=== PATIENT | male | born 2000 | race Caucasian/White ===

== ENCOUNTER 2019-10-23 15:26 | Emergency (ER) | payer OTHER ==
[2019-10-23 15:33] VITALS: BP 125/66; PULSE 93; TEMP 98.1; BMI 21.7
--- NOTE | 2019-10-23 15:34 | PDOC ---
Rapid Medical Evaluation Chief Complaint: Pain Time Seen by Provider: 10/23/19 15:30 Medical Evaluation: 10/23/19 15:32 CC: Left shoulder pain worse with movement x 2 weeks, also states had unprotected sex with a "stripper" wants std testing although asymptomatic Exam: FROM of left shoulder Plan: std testing. shoulder xray Discharge Disposition - Diagnosis Shoulder pain - Referrals - Patient Instructions - Post Discharge Activity
--- NOTE | 2019-10-23 16:25 | PDOC ---
History of Present Illness - General Chief Complaint: Pain Stated Complaint: PAIN Time Seen by Provider: 10/23/19 15:30 History Source: Patient Exam Limitations: No Limitations - History of Present Illness Initial Comments: 10/23/19 16:20 Patient is a 19-year-old male who presents to the ED with complaint of left shoulder pain that he gets intermittently and has had it for the last 1 week. He states the pain is primarily in the backside of his shoulder and radiates up his neck and sometimes down his back. Sometimes he feels pain anteriorly as well. He denies any known injury. He denies any weakness. He states he does not have any pain at this time. He denies any shortness of breath or chest pain. He denies any palpitations. The patient has a history of anxiety and ADHD. He also states that he would like to get tested for STDs because he had sexual intercourse with a stripper 1 to 2 months ago and his condom broke. He states he just wanted to get tested for STDs because he was worried since he had sex with a stripper. The patient denies any dysuria, hematuria, penile drainage, blood in urine, masses or lesions on the genitalia. He states he would just like routine testing. Past History - Medical History Allergies/Adverse Reactions: Allergies Allergy/AdvReac Type Severity Reaction Status Date / Time No Known Allergies Allergy Verified 10/23/19 15:32 COPD: No - Psycho-Social/Smoking History Smoking History: Current every day smoker Information on smoking cessation initiated: No - Substance Abuse Hx (Audit-C & DAST Scrn) How often the patient has a drink containing alcohol: Monthly or less Score: In Men: 4 or > Positive; In Women: 3 or > Positive: 1 Screen Result (Pos requires Nsg. Audit-10AR): Negative Review of Systems - Review of Systems Comments:: 10/23/19 16:23 - Review of Systems Able to Perform ROS?: Yes Constitutional: No: Fever, Chills, Loss of Appetite, Night Sweats, Weakness HEENTM: No: Eye Pain, Vision changes, Ear Pain, Throat Pain, Throat Swelling, Mouth Pain, Difficulty Swallowing Respiratory: No: Cough, Shortness of Breath, Wheezing, Sputum Production Cardiac (ROS): No: Chest Pain, Chest Tightness, Palpitations, Irregular Heart Beat, Edema ABD/GI: No: Nausea, Vomiting, Abdominal Pain, Diarrhea : No Dysuria, No Hematuria, No Frequency, No Urgency, No Penile Discharge/Pain; would like STD testing Musculoskeletal: No: Muscle Pain, Back Pain, Joint Pain, Muscle Weakness, Neck Pain; positive: Left shoulder pain Integumentary: No: Lesions, Rash Neurological: No: Headache, Numbness, Tingling, Weakness, Speech Difficulties *Physical Exam - Vital Signs Last Vital Signs Temp Pulse Resp BP Pulse Ox 98.1 F 93 H 18 125/66 98 10/23/19 15:30 10/23/19 15:30 10/23/19 15:30 10/23/19 15:30 10/23/19 15:30 - Physical Exam 10/23/19 16:24 - Physical Exam General Appearance: Nourished, Appropriately Dressed, No Distress HEENT: EOMI, Normal Voice, No Pharyngeal Erythema, No Muffled/Hoarse voice, No Tonsillar Exudate, No Tonsillar Erythema, No Nasal Congestion, No Rhinorrhea, Hearing Grossly Normal, TMs Normal, No TM Bulging, No TM Dullness, No TM Erythema Neck: Supple, No Lymphadenopathy (R), No Lymphadenopathy (L), No Rigidity, No Decreased range of motion Respiratory/Chest: Lungs Clear, Normal Breath Sounds. No Respiratory Distress, No Accessory Muscle Use Cardiovascular: Regular Rhythm, Regular Rate, S1, S2 Gastrointestinal/Abdominal: Normal Bowel Sounds, Soft. Non-tender, No Guarding, No Rebound, No Rigidity : Deferred as per patient request, states he just wants testing. Musculoskeletal: Normal Inspection. No Decreased Range of Motion; reproducible tenderness to palpation over the left trapezius muscle. Forward flexion of the left shoulder to 180 degrees, internal rotation to the upper thoracic spine with negative liftoff. Extremity: Normal Capillary Refill, Normal Inspection Integumentary: Normal Color, Dry. No Rash Neurologic: sail repairer II-XII NML intact, Fully Oriented, Alert, Normal Mood/Affect, Normal Response Medical Decision Making - Medical Decision Making 10/23/19 16:25 Assessment: Patient is a 19-year-old male with left shoulder pain who also wants routine STD testing. Plan: -Left shoulder x-ray performed which shows no acute fracture or dislocation. -The patient has been made aware that his symptoms are likely secondary to a trapezius muscle strain which he could take NSAIDs for. -GC/chlamydia testing sent to the lab. The patient has been made aware that we will call him with the results and we will not treat him at this time since he has no symptoms. He has been made aware that the remaining STD testing can be done as an outpatient in his primary doctor's office. Discharge - Discharge Information Problems reviewed: Yes Clinical Impression/Diagnosis: Screen for STD (sexually transmitted disease) Shoulder pain Qualifiers: Chronicity: acute Laterality: left Qualified Code(s): M25.512 - Pain in left shoulder Strain of left trapezius muscle Qualifiers: Encounter type: initial encounter Qualified Code(s): S46.812A - Strain of other muscles, fascia and tendons at shoulder and upper arm level, left arm, initial encounter Condition: Stable Disposition: HOME - Follow up/Referral Referrals: [facility] [place] [facility] [place] [Provider Group] - Call tomorrow - Patient Discharge Instructions Patient Printed Discharge Instructions: Facts About Sexually Transmitted Infections, DI for Muscle Strain, DI for Shoulder Pain Additional Instructions: Get plenty of rest and drink plenty of fluids. You can take [id number] anti-inflammatories such as Motrin or Advil for shoulder pain. Your STD testing will take roughly 3 days to result and you will get a call only if the tests are concerning for an active STD. Follow-up with your primary doctor and if you do not have one you have been referred to the [facility]. - Post Discharge Activity Work/Back to School Note: Back to Work
== END 2019-10-23 17:10 | disposition home or self-care (01) ==
LOC: JERFT 15:26
DX: S46.812A Strain of other muscles, fascia and tendons at shoulder and upper arm level, left arm, initial encounter (principal); Y99.9 Unspecified external cause status
CPT/HCPCS: 36415; 73030-TC-LT-FY; 87491; 87591; 99283-25